=== PATIENT | female | born 1965 | race Two or more races ===

== ENCOUNTER 2018-09-27 15:55 | Emergency (ER) | payer OTHER ==
[~2018-09-27] VITALS: Ht 160 cm; Wt 122.5 kg
[~2018-09-27 15:55] MED LIST: ATACAND HCT 31 UDTA1 PO; HYZAAR 50/12.51 TAB; OSEL75CA PO; SIDEROL TABLET1 TAB; SYNTHROID50 MCG; TUSSI PRES-B L120 M1 PO
[2018-09-27] MEDS ORDERED: SIMVASTATIN20 MG (16:15)
[2018-09-27] MEDS ORDERED: FORTAMET1000 MG (16:15)
[2018-09-27] MEDS ORDERED: COZAAR100 MG (16:15)
[2018-09-27] MEDS ORDERED: NEURONTIN300 MG (16:15)
== END 2018-09-27 20:15 | disposition home or self-care (01) ==
LOC: ER 15:55
DX: R00.2 Palpitations (principal)

== ENCOUNTER 2019-05-01 08:10 | Emergency (ER) | payer OTHER ==
[~2019-05-01] VITALS: Ht 160 cm; Wt 113.4 kg
[~2019-05-01 08:10] MED LIST changes: +COZAAR100 MG; +FORTAMET1000 MG; +NEURONTIN300 MG; +SIMVASTATIN20 MG
== END 2019-05-01 18:23 | disposition home or self-care (01) ==
LOC: ER 08:10
DX: K52.9 Noninfective gastroenteritis and colitis, unspecified (principal)

== ENCOUNTER 2020-02-26 11:08 | Emergency (ER) | payer OTHER ==
[~2020-02-26] VITALS: Ht 160 cm; Wt 106.6 kg
[2020-02-26] MEDS ORDERED: TOPROL XL50 M1 (11:42)
[2020-02-26] MEDS ORDERED: COZAAR50 MG (11:42)
[2020-02-26] MEDS ORDERED: KETO10TA2 PO (15:55)
[2020-02-26] MEDS ORDERED: ZITHROMAX TRI-500 MG PO (15:55)
== END 2020-02-26 16:00 | disposition home or self-care (01) ==
LOC: ER 11:08
DX: B34.9 Viral infection, unspecified (principal); Z03.818 Encounter for observation for suspected exposure to other biological agents ruled out; R07.89 Other chest pain

== ENCOUNTER 2020-08-16 05:43 | Emergency (ER) | payer OTHER ==
[~2020-08-16] VITALS: Ht 160 cm; Wt 107.0 kg
[~2020-08-16 05:43] MED LIST changes: +COZAAR50 MG; +KETO10TA2 PO; +TOPROL XL50 M1; +ZITHROMAX TRI-500 MG PO
[2020-08-16] MEDS ORDERED: PEPCID AC20 MG PO (18:47)
== END 2020-08-16 20:02 | disposition home or self-care (01) ==
LOC: ER 05:43
DX: R10.13 Epigastric pain (principal); E11.65 Type 2 diabetes mellitus with hyperglycemia

== ENCOUNTER → 2020-11-27 | Emergency (ER) | payer OTHER ==
[~2020-11-27] VITALS: Ht 160 cm; Wt 104.3 kg
[~2020-11-27] MED LIST changes: +BENADRYL25 MG PO; +PEPCID AC20 MG PO; +ZOVIRAX800 MG PO
== END | disposition home or self-care (01) ==
LOC: ER 09:44
DX: B02.9 Zoster without complications (principal)

== ENCOUNTER 2022-02-18 10:36 | Emergency (ER) | payer OTHER ==
[~2022-02-18] VITALS: Ht 160 cm; Wt 104.3 kg
[2022-02-18] MEDS ORDERED: GABAPENTIN100 M2 PO (11:30)
[2022-02-18] MEDS ORDERED: SYNTHROID75 MCG PO (11:31)
[2022-02-18] MEDS ORDERED: COZAAR50 MG PO (11:31)
[2022-02-18] MEDS ORDERED: GLIPIZIDE XL10 MG PO (11:32)
[2022-02-18] MEDS ORDERED: OMEPRAZOLE MAGN20 MG PO (19:07)
[2022-02-18] MEDS ORDERED: LEVSIN/SL0.125 MG SL (19:07)
[2022-02-18] MEDS ORDERED: CIPRO500 MG PO (19:07)
== END 2022-02-18 19:15 | disposition home or self-care (01) ==
LOC: ER 10:36
DX: K52.9 Noninfective gastroenteritis and colitis, unspecified (principal); N83.202 Unspecified ovarian cyst, left side; N83.201 Unspecified ovarian cyst, right side

== ENCOUNTER 2024-04-17 12:44 | Emergency (ER) | payer OTHER ==
[~2024-04-17] VITALS: Ht 160 cm; Wt 90.7 kg
[~2024-04-17 12:44] MED LIST changes: +CIPRO500 MG PO; +COZAAR50 MG PO; +GABAPENTIN100 M2 PO; +GLIPIZIDE XL10 MG PO; +LEVSIN/SL0.125 MG SL; +OMEPRAZOLE MAGN20 MG PO; +SYNTHROID75 MCG PO
[2024-04-17] MEDS ORDERED: TRIJARDY XR 101 EACH PO (14:01)
[2024-04-17] MEDS ORDERED: ORPHENADRINE CITRATE 30 MG/ML AMPUL IM ONE (14:30)
[2024-04-17] MEDS ORDERED: KETOROLAC TROMETHAMINE 60 MG VIAL IM ONE (14:30)
[2024-04-17] MEDS ORDERED: KETO10TA2 PO (19:03)
== END 2024-04-17 19:07 | disposition home or self-care (01) ==
LOC: ER 12:46
DX: M54.9 Dorsalgia, unspecified (principal); I10 Essential (primary) hypertension; E11.9 Type 2 diabetes mellitus without complications; Z79.84 Long term (current) use of oral hypoglycemic drugs

== ENCOUNTER 2024-05-08 09:59 | Inpatient (IN) | payer OTHER ==
[~2024-05-08] VITALS: Ht 160 cm; Wt 86.2 kg
[~2024-05-08 09:59] MED LIST changes: +TRIJARDY XR 101 EACH PO
[2024-05-08] MEDS ORDERED: VANCOMYCIN HCL 1,000 MG VIAL IV ONE (10:45)
[2024-05-08] MEDS ORDERED: VANCOMYCIN HCL 1,000 MG VIAL ONE (10:45)
[2024-05-08] MEDS ORDERED: 0.9 % SODIUM CHLORIDE 1,000 ML IV SCH ×2 (10:45→19:45)
[2024-05-08] MEDS ORDERED: INSULIN REGULAR, HUMAN 1,000 UNIT/10 ML UNITS IV ONE (10:45)
[2024-05-08 11:21] LABS: HEMATOCRIT 43.1 % (36.0-45.00); HEMOGLOBIN 14.4 g/dL (12.0-15.00); MEAN CELL VOLUME 86.1 fL (80.00-100.00); MEAN CORPUSCULAR HEMOGLOBIN 28.7 pg (27.00-32.0); MEAN CORPUSCULAR HGB CONC 33.3 g/dl (32.0-36.0); PLATELET COUNT 293 K/uL (150-450); RED BLOOD COUNT 5.01 M/uL (4.00-6.00); RED CELL DISTRIBUTION WIDTH 13.4 % (11.5-14.5)
[2024-05-08 11:22] LABS: ERYTHROCYTE SEDIMENTATION RATE 11 mm/hr
[2024-05-08 11:40] LABS: INR 0.94; PARTIAL THROMBOPLASTIN TIME 26.8 SECONDS (22.0-34.0); PROTHROMBIN TIME 10.3 SECONDS (9.0-11.5)
[2024-05-08 11:43] LABS: ALBUMIN 3.5 gm/dL (3.4-5.0); BILIRUBIN TOTAL 1.15 mg/dL (0.3-1.2); CALCIUM 9.4 mg/dL (8.5-10.1); CREATININE SERUM 0.56 mg/dL (0.55-1.02); GFR 111.58; GLOBULINA 4.6 G/DL (2.4-3.5); TOTAL PROTEIN 8.1 gm/dL (6.4-8.2)
[2024-05-08 11:47] LABS: C-REACTIVE PROTEIN 5.83 MG/DL (0.00-0.29)
[2024-05-08] MEDS ORDERED: PIPERACILLIN/TAZOBACTAM SODIUM 3.375 GM in DEXTROSE 5 % IN WATER 100 ML IV SCH (19:34)
[2024-05-08] MEDS ORDERED: GABAPENTIN 300 MG CAPSULE PO SCH (19:35)
[2024-05-08] MEDS ORDERED: ACETAMINOPHEN 500 MG GEL..CAP PO PRN (19:45)
[2024-05-08] MEDS ORDERED: DEXTROSE 50 % IN WATER 0.5 G/ML DISP.SYRIN IV PRN (19:45)
[2024-05-08] MEDS ORDERED: INSULIN LISPRO 1,000 UNIT/10 ML UNITS SUBCUTANEO PRN (19:45)
[2024-05-09] MEDS ORDERED: PIPERACILLIN/TAZOBACTAM SODIUM 3.375 GM VIAL IV ONE (01:58)
[2024-05-09 02:00] VITALS: BP 140/70; O2SAT 98
[2024-05-09 03:53] LABS: PH,URINE 5.5 (5.0-8.0); URINE APPEARANCE Clear; URINE BILIRRUBIN Negative (NEGATIVE); URINE BLOOD Negative; URINE COLOR Yellow; URINE KETONE 15 (NEGATIVE); URINE LEUKOCYTE Negative; URINE NITRATE Negative; URINE PROTEIN Negative (NEGATIVE)
[2024-05-09 03:57] LABS: URINE BACTERIA 50.1 uL (0.0-1933); URINE EPITHELIAL CELLS 11.8 uL (0.0-38.8); URINE RBC 10.7 uL (0.0-20.8); URINE WBC 33.3 uL (0.0-23.2)
[2024-05-09 03:58] LABS: URINE CAST 0.14 uL (0.0-1.40); URINE GLUCOSE >=1000 MG/DL (NEGATIVE)
[2024-05-09] MEDS ORDERED: LEVOTHYROXINE SODIUM 75 MCG TABLET PO SCH (06:00)
[2024-05-09 08:26] VITALS: BP 123/85; O2SAT 100
[2024-05-09] MEDS ORDERED: LOSARTAN POTASSIUM 50 MG TABLET PO SCH (09:00)
[2024-05-09] MEDS ORDERED: ENOXAPARIN SODIUM 40 MG/0.4 ML SYRINGE SUBCUTANEO SCH (09:00)
[2024-05-09] MEDS ORDERED: VANCOMYCIN HCL 1,000 MG VIAL IV SCH ×2 (09:00→21:00)
[2024-05-09] MEDS ORDERED: METOPROLOL SUCCINATE 50 MG TAB.SR.24H PO SCH (09:00)
[2024-05-09 09:49] VITALS: BP 142/81; O2SAT 95
[2024-05-09] MEDS ORDERED: SIMVASTATIN 20 MG TABLET PO SCH (17:00)
[2024-05-09] MEDS ORDERED: INSULIN GLARGINE,HUM.REC.ANLOG 1,000 UNITS/10 ML UNITS SUBCUTANEO SCH ×2 (17:00)
[2024-05-09 17:15] VITALS: BP 130/80; O2SAT 97
[2024-05-10 01:04] VITALS: BP 127/73; O2SAT 97
[2024-05-10 06:09] LABS: HEMATOCRIT 37.8 % (36.0-45.00); HEMOGLOBIN 13.1 g/dL (12.0-15.00); MEAN CELL VOLUME 84.7 fL (80.00-100.00); MEAN CORPUSCULAR HEMOGLOBIN 29.3 pg (27.00-32.0); MEAN CORPUSCULAR HGB CONC 34.6 g/dl (32.0-36.0); PLATELET COUNT 271 K/uL (150-450); RED BLOOD COUNT 4.46 M/uL (4.00-6.00); RED CELL DISTRIBUTION WIDTH 13.3 % (11.5-14.5)
[2024-05-10 06:54] LABS: ALBUMIN 2.9 gm/dL (3.4-5.0); BILIRUBIN TOTAL 1.07 mg/dL (0.3-1.2); CALCIUM 8.8 mg/dL (8.5-10.1); CREATININE SERUM 0.39 mg/dL (0.55-1.02); GFR 169.39; GLOBULINA 3.5 G/DL (2.4-3.5); MAGNESIUM 1.7 mg/dL (1.8-2.4); PHOSPHOROUS 3.8 mg/dL (2.5-4.9); POTASSIUM 4.06 mEq/L (3.5-5.1); TOTAL PROTEIN 6.4 gm/dL (6.4-8.2)
[2024-05-10 07:00] LABS: C-REACTIVE PROTEIN 2.06 MG/DL (0.00-0.29)
[2024-05-10 08:48] VITALS: BP 139/84; O2SAT 96
[2024-05-10] MEDS ORDERED: DEXTROSE 5%-WATER 100ML IV.SOLN ONE (15:29)
[2024-05-10 16:49] VITALS: BP 149/87; O2SAT 97
[2024-05-11 01:25] VITALS: BP 104/65; O2SAT 98
[2024-05-11] MEDS ORDERED: INSULIN LISPRO 1,000 UNIT/10 ML UNITS SUBCUTANEO SCH (08:00)
[2024-05-11 09:17] VITALS: BP 134/79; O2SAT 98
[2024-05-11] MEDS ORDERED: MAGNESIUM SULFATE IN WATER 50 ML IV NR (11:30)
[2024-05-11] MEDS ORDERED: MONDOXYNE NL100 MG PO (11:35)
[2024-05-11] MEDS ORDERED: MUPIROCIN15 GM TOP (11:36)
[2024-05-11 15:30] VITALS: BP 176/83
== END 2024-05-11 17:20 | disposition home or self-care (01) | DRG 623 ==
LOC: ER 10:02 → SEC-K 21:19 → MEDI 05-09 08:36
PROVIDERS: General Practice; Internal Medicine Infectious Disease; ADMIT Internal Medicine; ATTEND Internal Medicine
PROC: B54DZZZ Ultrasonography of Bilateral Lower Extremity Veins (ICD-10-PCS; 2024-05-08)
PROC: B44HZZZ Ultrasonography of Bilateral Lower Extremity Arteries (ICD-10-PCS; 2024-05-08)
PROC: 0JBQ0ZZ Excision of Right Foot Subcutaneous Tissue and Fascia, Open Approach (ICD-10-PCS; principal; 2024-05-09)
PROC: BL31ZZZ Magnetic Resonance Imaging (MRI) of Lower Extremity Connective Tissue (ICD-10-PCS; 2024-05-10)
PROC: 02HV33Z Insertion of Infusion Device into Superior Vena Cava, Percutaneous Approach (ICD-10-PCS; 2024-05-10)
PROC: 3E04329 Introduction of Other Anti-infective into Central Vein, Percutaneous Approach (ICD-10-PCS; 2024-05-10)
DX: E11.621 Type 2 diabetes mellitus with foot ulcer (principal); L02.611 Cutaneous abscess of right foot; L03.115 Cellulitis of right lower limb; L97.419 Non-pressure chronic ulcer of right heel and midfoot with unspecified severity; L97.519 Non-pressure chronic ulcer of other part of right foot with unspecified severity; E11.65 Type 2 diabetes mellitus with hyperglycemia; B95.61 Methicillin susceptible Staphylococcus aureus infection as the cause of diseases classified elsewhere; I10 Essential (primary) hypertension; E03.9 Hypothyroidism, unspecified; Z79.84 Long term (current) use of oral hypoglycemic drugs
CPT/HCPCS: 73725

== ENCOUNTER → 2024-08-21 | Emergency (ER) | payer OTHER ==
[~2024-08-21] VITALS: Ht 160 cm; Wt 90.7 kg
[~2024-08-21] MED LIST changes: +CEFTRIAXONE SODIUM 1,000 MG VIAL IM ONE; +CEFTRIAXONE SODIUM 1,000 MG VIAL ONE; +LIDOCAINE HCL 1% 10ML VIAL ONE; +MONDOXYNE NL100 MG PO; +MUPIROCIN15 GM TOP; +NEURONTIN300 MG PO
[2024-08-21 09:12] LABS: HEMATOCRIT 42.8 % (36.0-45.00); HEMOGLOBIN 14.2 g/dL (12.0-15.00); MEAN CELL VOLUME 86.5 fL (80.00-100.00); MEAN CORPUSCULAR HEMOGLOBIN 28.7 pg (27.00-32.0); MEAN CORPUSCULAR HGB CONC 33.2 g/dl (32.0-36.0); PLATELET COUNT 286 K/uL (150-450); RED BLOOD COUNT 4.95 M/uL (4.00-6.00); RED CELL DISTRIBUTION WIDTH 13.7 % (11.5-14.5)
[2024-08-21 09:57] LABS: ALBUMIN 3.7 gm/dL (3.4-5.0); BILIRUBIN TOTAL 0.85 mg/dL (0.3-1.2); CALCIUM 9.2 mg/dL (8.5-10.1); CREATININE SERUM 0.42 mg/dL (0.55-1.02); GFR 155.51; GLOBULINA 4.4 G/DL (2.4-3.5); POTASSIUM 3.88 mEq/L (3.5-5.1); TOTAL PROTEIN 8.1 gm/dL (6.4-8.2)
== END | disposition home or self-care (01) ==
LOC: ER 06:43
PROVIDERS: General Practice
DX: R60.0 Localized edema (principal); I10 Essential (primary) hypertension; E03.8 Other specified hypothyroidism; E11.9 Type 2 diabetes mellitus without complications; Z79.84 Long term (current) use of oral hypoglycemic drugs

== ENCOUNTER 2024-11-03 13:14 | Emergency (ER) | payer OTHER ==
[~2024-11-03] VITALS: Ht 160 cm; Wt 90.7 kg
[~2024-11-03 13:14] MED LIST changes: -CEFTRIAXONE SODIUM 1,000 MG VIAL IM ONE; -CEFTRIAXONE SODIUM 1,000 MG VIAL ONE; -LIDOCAINE HCL 1% 10ML VIAL ONE
[2024-11-03] MEDS ORDERED: ONDANSETRON HCL 2 MG/ML VIAL IV ONE (14:30)
[2024-11-03] MEDS ORDERED: FAMOTIDINE/PF 20 MG/2 ML VIAL IV ONE (14:30)
[2024-11-03] MEDS ORDERED: 0.9 % SODIUM CHLORIDE 1,000 ML IV ONE (14:30)
[2024-11-03] MEDS ORDERED: INSULIN REGULAR, HUMAN 1,000 UNIT/10 ML UNITS IV ONE (14:30)
[2024-11-03 14:39] LABS: BASO % 0.3 % (0.1-1.2); EOS # 0.00 (0.04-0.54); EOS % 0.0 % (0.7-7.0); LYMPH # 0.48 (1.18-3.74); LYMPH % 7.0 % (19.3-53.1); MEAN PLATELET VOLUME 10.60 fl (9.4-12.4); MONO # 0.19 (0.24-0.82); MONO % 2.8 % (4.7-12.5); NEUT # 6.12 (1.56-6.13); NEUT % 89.6 % (34.0-71.1); RED CELL DISTRIBUTION WIDTH 12.5 % (11.6-14.4)
[2024-11-03 15:03] LABS: ALT/SGPT 15.0 U/L (12-78); AST/SGOT 18.0 U/L (15-37); BILIRUBIN TOTAL 1.59 mg/dL (0.3-1.2); BUN CREA RATIO 20.0 (7.0-25.0); CREATININE SERUM 0.55 mg/dL (0.55-1.02); GFR 113.92; GLOBULINA 4.1 G/DL (2.4-3.5); OSMOLALITY SERUM 281.0 MOSM/KG (275-295)
[2024-11-03 15:04] LABS: COVID-19 AG NEGATIVE (NEGATIVE)
[2024-11-03 15:11] LABS: GLUCOSE FASTING 306.0 mg/dL (65-100)
[2024-11-03 15:45] LABS: URINE APPEARANCE Clear; URINE BILIRRUBIN Negative (NEGATIVE); URINE BLOOD Negative; URINE COLOR Yellow; URINE KETONE 15 (NEGATIVE); URINE LEUKOCYTE Negative; URINE NITRATE Negative; URINE PROTEIN Negative (NEGATIVE); URINE UROBILINOGEN 0.2 E.U./dl
[2024-11-03 15:49] LABS: URINE BACTERIA 163.1 uL (0.0-1933); URINE EPITHELIAL CELLS 5.6 uL (0.0-38.8); URINE RBC 11.2 uL (0.0-20.8); URINE WBC 17.9 uL (0.0-23.2)
[2024-11-03 15:50] LABS: URINE CAST 0.14 uL (0.0-1.40); URINE GLUCOSE >=1000 MG/DL (NEGATIVE)
[2024-11-03] MEDS ORDERED: PEPCID AC20 MG PO (18:16)
[2024-11-03] MEDS ORDERED: ONDANSETRON ODT4 MG PO (18:16)
[2024-11-03 19:52] LABS: ABG PH 7.450 (7.35-7.45); ABG PO2 75.7 mmHg (80-100); BICARBONATE 24.0 mmol/l (23-25)
[2024-11-03 19:53] LABS: o2 21 %
== END 2024-11-03 18:47 | disposition home or self-care (01) ==
LOC: ER 13:14
PROVIDERS: Emergency Medicine
DX: K29.70 Gastritis, unspecified, without bleeding (principal); R42 Dizziness and giddiness; R11.10 Vomiting, unspecified; Z20.822 Contact with and (suspected) exposure to COVID-19; I10 Essential (primary) hypertension; E03.8 Other specified hypothyroidism; E11.9 Type 2 diabetes mellitus without complications; Z79.84 Long term (current) use of oral hypoglycemic drugs